=== PATIENT | male | born 2000 | race Caucasian/White ===

== ENCOUNTER 2023-01-22 17:57 | Emergency (ER) | payer OTHER, SELFPAY ==
[2023-01-22 17:57] VITALS: BP 161/94; PULSE 99; RESP 18; TEMP 36.9; O2SAT 99; BMI 19.5
--- NOTE | 2023-01-22 19:05 | EX.ED.UPPERE ---
HPI History of Present Illness Chief Complaint: Laceration Detail of Chief Complaint: Left index finger laceration Informant: patient Onset/Context/Timing Onset: Today Narrative Narrative: Patient presents with laceration to the left index finger. He cut his finger with a pair of scissors while he was doing dishes. He is right-hand dominant. He is unsure of his last tetanus update. PFSH PFS Medical History no medical history no medical history Allergy/AdvReac Type Severity Reaction Status Date / Time No Known Allergies Allergy Verified 01/22/23 17:59 Social History Smoking Status: Never smoker ROS ROS ED Constitutional Constitutional ED: Denies chills or fever(s) Eyes Eyes: Denies change in vision or discharge from eye(s) ENT ENT ED: Denies discharge from eye(s), rhinorrhea or sore throat Cardiovascular Cardiovascular: Denies chest pain Respiratory/Chest Respiratory/Chest: Denies cough or dyspnea Gastrointestinal Gastrointestinal: Denies abdominal pain, diarrhea, nausea or vomiting Musculoskeletal Musculoskeletal: Reports extremity pain; Denies back pain Integumentary Reports other Details: Finger laceration ; Denies Abrasions or rash Neurologic Neurologic: Denies headache(s) or weakness Psychiatric Psychiatric: Denies anxiety or depression Allergic/Immunologic Allergic/Immunologic ED: Denies lip swelling or urticaria EXAM Physical Exam Const Vital Signs: 01/22/23 17:57 Temperature 98.4 F Temperature Source Temporal Pulse Rate 99 Respiratory Rate 18 Blood Pressure 161/94 H Blood Pressure Mean 116 Pulse Ox 99 Oxygen Delivery Method Room Air Positive well nourished and well developed General Appearance ED: well developed HEENT Reports normocephalic and head/scalp atraumatic Eyes PERRL and EOMs intact bilaterally Neck supple Chest Wall inspection of chest normal and palpation of chest normal Resp normal respiratory effort and clear to auscultation bilaterally Cardio regular rate and regular rhythm GI normal to inspection, nondistended, normoactive bowel sounds Palpation: soft Extremity Extremity Narrative: 1 cm laceration across the flexor portion of the left index finger over the distal phalanx. Bleeding well controlled. Good cap refill and sensation distally. Normal range of motion. Neuro oriented x3 and no sensory deficits noted Sensorium / Orientation: alert Motor Exam: strength 5/5 throughout Psych mental status grossly normal Skin Skin Narrative: Left index finger laceration. MDM MDM MDM Narrative Medical decision making narrative: Tetanus update is provided. Digital block performed with 3 cc 1% lidocaine. Good anesthesia is obtained. Wound is thoroughly cleansed and irrigated. For simple interrupted sutures with 5-0 nylon are placed across the laceration. Bleeding is well controlled. Dressing is applied and wound care is discussed. Patient is to have sutures removed in 1 week. Discharge Plan Triage Chief Complaint: Laceration ED Provider: Irma Maza Dx/Rx/DC Orders Clinical Impression: Laceration of finger, index Instructions: ED Laceration Extremity Primary Care Provider: Care Physician,No Primary Referrals: Care Physician,No Primary [Primary Care Provider] - Activity Restrictions/Additional Instructions: Follow-up in 1 week for suture removal as discussed. Disposition Disposition: Home, Self Care
[2023-01-22] MEDS: Diphth,Pertuss(Acell),Tet Vac 0.5 ML Vial IM (19:18)
[2023-01-22] MEDS: Lidocaine 1% (20 ml mdv) 20 ML Vial INFILT (19:19)
== END 2023-01-22 19:56 | disposition home or self-care (01) ==
PROVIDERS: Emergency Provider Emergency Medicine; Visit Provider Emergency Medicine
DX: S61.211A Laceration without foreign body of left index finger without damage to nail, initial encounter (principal); W27.2XXA Contact with scissors, initial encounter; Y93.G1 Activity, food preparation and clean up
CPT/HCPCS: 12001; 90715; 99283